=== PATIENT | male | born 1955 | race Caucasian/White ===

== ENCOUNTER 2016-03-28 09:27 | Emergency (ER) | payer BC ==
[2016-03-28 10:38] VITALS: BP 154/103
--- NOTE | 2016-03-28 11:48 | UC ---
Truncal Trauma HPI - HPI Summary HPI Summary: 60 year old male comes into the clinic complaining of right sided dorsal rib cage pain, located around the 10th posterior rib. Patient slipped and fell on ice last night walking his dog, states that his feet were parallelel to the ground at the level of his head, right sided thoracic region impacted the ground. Pain 6/10 at rest, worsened with particular movements, deep breathing, and cough. - History Of Current Complaint Chief Complaint: UCBackPain Stated Complaint: TRUNCAL PAIN Hx Obtained From: Patient Onset/Duration: Sudden Onset Severity Initially: Moderate Severity Currently: Moderate - Pain located on the right rib Pain Intensity: 6 Mechanism Of Injury: Fall From Height Of: - 3 feet. Patient slipped and fell, feet came up parallel to his head, inpacted in the thoracic region. Aggravating Factor(s): Movement, Deep Breathing, Cough Alleviating factor(s): Rest, Shallow Breathing Associated Signs And Symptoms: Positive: Cough. Negative: SOB, Chest Pain, Abdominal Pain, Vomiting Related History: Similar Episode That Was Diagnosed As: - 30 years ago, s/p rib fracture - Allergies/Home Medications Allergies/Adverse Reactions: Allergies Allergy/AdvReac Type Severity Reaction Status Date / Time No Known Allergies Allergy Verified 03/16/13 08:50 PMH/Surg Hx/FS Hx/Imm Hx Previously Healthy: Yes - Squamous cell CA Endocrine History Of: Denies: Diabetes, Thyroid Disease, Hyperthyroidism, Hypothyroidism, Dyslipidemia Cardiovascular History Of: Denies: Cardiac Disorders, Hypertension, Pacemaker/ICD, Myocardial Infarction , Congestive Heart Failure, Atrial Fibrillation, Deep Vein Thrombosis, Bleeding Disorders Respiratory History Of: Denies: COPD, Asthma, Pulmonary Embolism GI/ History Of: Denies: Gastroesophageal Reflux, Ulcer Neurological History Of: Denies: TIA, CVA, Dementia, Seizures, Migraine Psychological History Of: Denies: Anxiety, Depression, Bipolar Disorder, Schizophrenia, Post Traumatic Stress Disorder - Surgical History Surgical History: Yes Surgery Procedure, Year, and Place: 1978 SQUAMOUS CELL CARCINOMA REMOVED FROM LIP, [facility]. 1998 VASECECTOMY, OFFICE - Social History Alcohol Use: Occasionally Substance Use Type: None Smoking Status (MU): Never Smoked Tobacco - Immunization History Most Recent Tetanus Shot: UNSURE Review of Systems Constitutional: Negative Skin: Negative Eyes: Negative ENT: Negative Respiratory: Negative Cardiovascular: Negative Gastrointestinal: Negative Genitourinary: Negative Motor: Decreased ROM - Truncal pain Neurovascular: Negative Musculoskeletal: Decreased ROM - Truncal, Edema - Slight right sided posterior rib cage edema Neurological: Negative Psychological: Negative All Other Systems Reviewed And Are Negative: Yes Physical Exam Triage Information Reviewed: Yes Appearance: Well-Appearing Vital Signs: Initial Vital Signs Temp 97.8 F 03/28/16 10:35 Pulse 73 03/28/16 10:35 Resp 18 03/28/16 10:35 BP 154/103 03/28/16 10:35 Pulse Ox 95 03/28/16 10:35 Vital Signs Reviewed: Yes Eye Exam: Normal ENT: Positive: Normal ENT inspection, Pharynx normal, TMs normal Dental Exam: Normal Neck exam: Normal Neck: Positive: Supple, Nontender, No Lymphadenopathy, Other: - Trachea is midline Respiratory: Positive: Chest non-tender, Lungs clear, Normal breath sounds, No respiratory distress, No accessory muscle use Cardiovascular Exam: Normal Cardiovascular: Positive: RRR, No Murmur, Pulses Normal Abdominal Exam: Normal Abdomen Description: Positive: Nontender Bowel Sounds: Positive: Present Musculoskeletal: Positive: Strength Intact, No Edema, ROM Limited @ Neurological: Positive: Alert Psychological Exam: Normal Truncal Trauma Course/Dx - Differential Dx/Diagnosis Provider Diagnoses: Right sided rib contusion Discharge - Discharge Plan Condition: Stable Disposition: HOME Prescriptions: HYDROcodone/ACETAMIN 5-325 MG* [[place] 5-325 TAB*] 1 tab PO BEDTIME PRN #7 tab MDD 1 PRN Reason: Pain Naproxen Sodium 500 mg PO BID #30 tab traMADol TAB* [Ultram*] 50 mg PO Q6HR PRN #20 tab MDD 4 PRN Reason: Pain Patient Education Materials: Rib Fracture (ED), Rib Contusion (ED) Referrals: Sheldon Burch MD [Primary Care Provider] - If Needed
--- NOTE | 2016-03-28 12:17 | RAD ---
HISTORY: Trauma to back from fall, right posterior back pain COMPARISONS: None VIEWS: 4, Frontal and oblique views of the right hemithorax. FINDINGS: There is no displaced rib fracture or pneumothorax. The visualized lungs are clear. IMPRESSION: NO DISPLACED RIB FRACTURE OR PNEUMOTHORAX
--- NOTE | 2016-03-28 12:17 | RAD ---
HISTORY: Trauma to back from fall, right posterior back pain COMPARISONS: None VIEWS: 2: Frontal dual-energy and lateral views of the chest. FINDINGS: CARDIOMEDIASTINAL SILHOUETTE: The cardiomediastinal silhouette is normal. EMILY: The emily are normal. PLEURA: The costophrenic angles are sharp. No pleural abnormalities are noted. LUNG PARENCHYMA: The lungs are clear. ABDOMEN: The upper abdomen is clear. There is no subphrenic gas. BONES AND SOFT TISSUES: No bone or soft tissue abnormalities are noted. OTHER: None. IMPRESSION: NO ACTIVE CARDIOPULMONARY DISEASE.
== END 2016-03-28 12:37 | disposition home or self-care (01) ==
LOC: UCEAST 09:27
DX: S20.211A Contusion of right front wall of thorax, initial encounter (principal); W00.0XXA Fall on same level due to ice and snow, initial encounter; Y93.K1 Activity, walking an animal; Y92.9 Unspecified place or not applicable
CPT/HCPCS: 71020; 99202; G0463